=== PATIENT | female | born 1935 | race Caucasian/White ===

== ENCOUNTER 2018-10-25 11:09 | Emergency (ER) | payer OTHER ==
[~2018-10-25] VITALS: Wt 74.0 kg
[~2018-10-25 11:09] MED LIST: ACET500C5 PO; ASCO500C7 PO; DORZ10DR6 BOTH EYES; ERGO2000 PO; MULT-860 PO; PHEN-537 PO
[2018-10-25] MEDS ORDERED: SOD CHLORIDE 0.9% 500 ML IV STA (12:44)
[2018-10-25 15:50] VITALS: BP 136/77; PULSE 61; RESP 18
== END 2018-10-25 15:59 | disposition home or self-care (01) ==
LOC: E/R 11:09
DX: K59.00 Constipation, unspecified (principal); R30.0 Dysuria
CPT/HCPCS: 36415; 74019; 80053; 81001; 83690; 85025; 99284; J7040